=== PATIENT | male | born 2005 | race Caucasian/White ===

== ENCOUNTER 2023-02-18 19:58 | Emergency (ER) | payer OTHER, MEDICAID, SELFPAY ==
--- NOTE | ~2023-02-18 | XR_ITS ---
EXAMINATION: XR HAND, LEFT CLINICAL INFORMATION: Injury fifth finger COMPARISON: None available. TECHNIQUE: PA, lateral, and oblique views of the left hand. FINDINGS: There is a comminuted minimally displaced fracture of the distal tuft of the fifth finger. Question small avulsion fracture of the ulnar or medial more proximal fifth distal phalanx. No other fracture. Joint spaces are Normal. There is overlying soft tissue swelling. XR/XR hand LT 2V IMPRESSION: Comminuted fracture of the distal tuft of the fifth finger
[2023-02-18 20:03] VITALS: BP 116/77; PULSE 90; O2SAT 98
--- NOTE | 2023-02-18 20:03 | ED_ITS ---
HPI - Extremity Injury (Upper) General Chief Complaint: Extremity Problem Stated Complaint: FALL Time Seen by Provider: 02/18/23 20:18 Source: patient Mode of arrival: ambulatory Limitations: no limitations History of Present Illness HPI narrative: Patient is a 17 year male who presents emergency department for evaluation of a crush injury to the left 5th digit. He is in training for the [employer], was pulling on a hose that was stuck and ultimately it crushed the tip of his finger and caused laceration to the lateral nail bed. He has full AROM to the digit but does have pain. There is no subungual hematoma. Reports last tetanus vaccination was in 2014. Related Data Previous Rx's Medication Instructions Recorded amoxicillin 875 mg-potassium 1 tab PO BID #13 tabs 02/18/23 clavulanate 125 mg tablet Allergies Allergy/AdvReac Type Severity Reaction Status Date / Time No Known Allergies Allergy Verified 02/18/23 20:04 Review of Systems Review of Systems: Yes all other systems are reviewed and are negative PMFSH Past Medical History Attestation statement: The following information was validated with the patient. Source: old records reviewed Social History Social History Advance Directives: No Advance Directives Information Provided: No Physical Exam Vital Signs: Vital Signs: Last Vital Signs Temp 98.3 F 02/18/23 20:05 Pulse 92 02/18/23 20:05 Resp 20 02/18/23 20:05 BP 122/72 02/18/23 20:05 Pulse Ox 99 02/18/23 20:05 O2 Del Method Room Air 02/18/23 20:05 BMI result Body Mass Index 21.3 Appearance: Alert.?Oriented to person, place and time. No acute distress.?Normal affect.? Neck: Normal inspection.? Neck supple.?? CVS: Heart sounds normal. Normal heart rate and rhythm.? Pulses normal.?? Respiratory: No respiratory distress.? Lung sounds clear to auscultation bilaterally?? Skin: Skin warm and dry.? Normal skin color.? Extremities: Localized swelling to the distal tip of the left 5th digit with laceration to the lateral nail bed without subungual hematoma, bleeding controlled, full AROM to the digit is intact Neuro: Moves all extremities spontaneously. Sensation intact bilaterally. Ambulates with normal steady gait. Course Course Course Narrative: This is a rapid medical exam. Deferred additional HPI, ROS, PE to primary provider. 17 yo male right hand dominant here with crush injury to left 5th digit. WIll obtain x-ray VSS Medical Decision Making Medical Decision Making MDM Narrative: Patient is a 17-year-old male presents emergency department for evaluation of a crushing injury to the distal left 5th digit as per HPI. Upon examination has Localized swelling to the distal tip of the left 5th digit with laceration to the lateral nail bed without subungual hematoma, bleeding controlled, full AROM to the digit is intact. Clinically have low concern for tendon/ligamentous injury based on examination. XR imaging revealing a comminuted fracture to the distal tuft of the 5th digit Tetanus vaccination was updated, discussed with patient plan of care for prophylactic treatment with antibiotics, was placed in a splint, and provided with outpatient follow-up with orthopedics; Dr. Rojo. Reviewed worrisome signs and symptoms that would warrant re-evaluation emergency department. All questions were answered. Stable for discharge. Differential Diagnosis Differential Diagnoses: The differential diagnosis associated with the presentation includes (As noted above) Independent Interpretation I performed an independent interpretation of an: Plain X-Ray (I personally interpreted XR imaging of the left hand and agree with radiologist impression, distal 5th phalanx fracture.) Radiology Impression Discussion of test interpretation with radiology: I have reviewed the radiologist's reading. Radiologist Impression: XR/XR hand LT 2V IMPRESSION: Comminuted fracture of the distal tuft of the fifth finger Prescription Management I considered prescription management with: Antibiotic Discharge Plan Discharge Clinical Impression: Fracture of distal phalanx of finger of left hand Patient Disposition: Home, Self-Care Instructions: Finger Fracture (ED) Additional Instructions: As discussed, please complete the entire course of antibiotics as prescribed. Leave the splint in place. You have been provided with contact information for the explosive specialist, Dr. Rojo, please contact the office tomorrow morning to arrange for a follow-up visit. Your tetanus vaccine was updated today. You can take ibuprofen 200 mg, 3 tablets (600mg) every 6-8 hours as needed for pain, in addition to Tylenol 500 mg, 2 tablets (1,000mg) every 4-6 h ours as needed for pain, but not to exceed 3 doses daily (3,000mg).? May return back to emergency department any new or worsening symptoms or concerns. Prescriptions: New amoxicillin-pot clavulanate 875-125 mg tablet 1 tab PO BID Qty: 13 0RF Referrals: Melva Rojo MD [Physician] -
[2023-02-18 20:05] VITALS: BP 122/72; PULSE 92; RESP 20; TEMP 36.8; O2SAT 99; BMI 21.3
[2023-02-18] MEDS: Amoxicillin/Potassium Clav 875 MG TABLET PO (22:37)
[2023-02-18] MEDS: Diphth,Pertus(ACell),Tet Adult 0.5 ML SYRINGE IM (22:38)
== END 2023-02-18 22:42 | disposition home or self-care (01) ==
PROVIDERS: Emergency Provider Internal Medicine
DX: S62.637A Displaced fracture of distal phalanx of left little finger, initial encounter for closed fracture (principal); S61.317A Laceration without foreign body of left little finger with damage to nail, initial encounter; W23.0XXA Caught, crushed, jammed, or pinched between moving objects, initial encounter; Y93.89 Activity, other specified; Y92.9 Unspecified place or not applicable; Y99.0 Civilian activity done for income or pay
CPT/HCPCS: 29130; 73120; 90471; 90715; 99282; 99284

== ENCOUNTER 2023-02-21 10:57 | Outpatient (AMB) | payer OTHER, MEDICAID, SELFPAY ==
[2023-02-21 11:05] VITALS: BMI 21.3
--- NOTE | 2023-02-21 11:05 | A.OFFVIS_ITS ---
Intake Vital Signs 02/21/23 11:05 Height 5 ft 7 in Weight 136 lb BMI 21.3 Intake Visit Reasons: Fc - FX distal phalanx of finger of lt hand Intake Note: Earl 17 yr old male who is right hand dominant presents today for his ED follow up visit for his left pinky fracture DOI 02/18/23. States he is in training for the [employer], was pulling on a hose that was stuck and ultimately it crushed the tip of his finger and caused laceration to the lateral nail bed. Xrays were taken and finger was splinted. Currently states his finger feels better while wearing his splint. He has bruising and swelling. Denies numbness or tingling. Allergies No Known Allergies Allergy (Verified 02/21/23 11:06) HPI Fc - FX distal phalanx of finger of lt hand HPI Details 17-year-old right hand dominant male who presents to the office today for an ED follow-up of left small finger injury s/p training for the [employer] when he was pulling on a hose that was stuck which crushed the tip of his finger and caused laceration at the lateral nailbed, 02/18/23. He was seen at ED where x-rays were performed and he was placed in a splint which provided him relief. He currently states he has bruising and swelling in his finger which is improved since his DOI. He denies any numbness or tingling. 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 He does have an abrasion along the base of his nail. No drainage, no erythema. He is able to fully extend the digit. He can flex 90 at MCP, 90 at PIP and 90 at DIP. NVI. Office Procedures Fracture Care Fracture Billing Code: Fracture Billing Code Results Reviewed Results Reviewed: X-rays of the left hand obtained on the ED on 02/18 show a comminuted stress fracture of the left small finger. Assessment & Plan Assessment & Plan (1) Fracture of distal phalanx of finger of left hand: Code(s): S62.639A - Displaced fracture of distal phalanx of unspecified finger, initial encounter for closed fracture Plan He will continue his antibiotics until fully completed. He can wash the area with warm soapy water 1-2 times a day and pat it dry and put it covered as needed. He does have small finger splint that he will use with activities and for protection. He will increase activity as tolerated and see me back as needed. Patient Instructions: Scribed for Manju House PA-C, by Brad Avila medical office receptionist assistant, on 02/21/2023 at 11:00 AM EDMAR. Manju Miranda PA-C, have personally reviewed and agree with the information entered by the scribe. Coding Level of Care Code New Pt Level 3 (66719) Diagnoses Fracture of distal phalanx of finger of left hand S62.639A CPT Codes Fracture Care - Fracture Billing Code: Fracture Billing Code ([id number])
== END 2023-02-21 11:38 | disposition home or self-care (01) ==
PROVIDERS: Visit Provider Physician Assistant
DX: S62.637A Displaced fracture of distal phalanx of left little finger, initial encounter for closed fracture (principal)
CPT/HCPCS: 99203

== ENCOUNTER → 2023-02-21 10:57 | Outpatient (BNVA) | payer OTHER, MEDICAID, SELFPAY | PROVIDERS: Visit Provider Physician Assistant | DX: S62.637A Displaced fracture of distal phalanx of left little finger, initial encounter for closed fracture (principal) | CPT/HCPCS: 99202 ==

== ENCOUNTER 2024-09-06 07:04 | Emergency (ER) | payer OTHER, MEDICAID, SELFPAY ==
--- NOTE | ~2024-09-06 | XR_ITS ---
CLINICAL HISTORY: lt ankle pain 3 view left ankle Comparison: None Findings: There is a distal fibular fracture with overlying soft tissue swelling No significant loss of joint space, osteophytes, or erosions. No ankle effusion. No radiopaque foreign body. IMPRESSION: 1. Distal fibular fracture. This document has been electronically signed by: Abdirahman Nguyen MD on 09/06/2024 08:06:46
[2024-09-06 07:13] VITALS: BP 114/74; BP 130/80; PULSE 110; PULSE 85; RESP 16; TEMP 36.3; O2SAT 100; O2SAT 98; BMI 21.1
[2024-09-06] MEDS: Acetaminophen 325 MG TABLET 975 MG PO (07:25)
--- OUTSIDE RECORDS SUMMARY | 2024-09-06 07:49 | XMS_ITS ---
[facility] Organization [facility] Address [address] [place] [address] Care Team Providers Care Emblem Drawer In Name Role Phone Leon Goldman MD Primary Care Provider Unava ilable Lupis Gaytan Unavailable [phone] Vidal Syed Unavailable [phone] Allergies No Known Allergies REASON FOR VISIT Possible Infection Medications Medication SIG (Take, Route, Frequency, Duration) Notes Start Date End Date Status Pulmicort PRN Not-Taking Sulfamethoxazole-Trimeth oprim Not-Taking Keflex 500 MG 1 capsule Orally carolyn ry 12 hrs for 7 days 02/10/2024 Active Cephalexin 500 MG 1 capsule Orally Carolyn ry 12 hrs for 5 days Active Bactrim DS 800-160 MG 1 tablet Orally ev roseann 12 hrs for 7 days 03/09/2018 Not-Taking Gym Note . . . Medical from gym for 2 weeks 06/15/2019 Active albuterol PRN Active Social History Tobacco Use: Social History Observation Description Date Details (start date - stop date) Never Smoker NA - NA Tobacco Use/Smoking Question Answer Notes Are you a: nonsmoker Tobacco use other than smoking: Question Answer Notes Are you an other tobacco user? No Vital Signs Height 5ft6in in 04/26/2024 Weight 136 lbs 04/26/2024 BMI 21.95 kg/m2 04/26/2024 Blood pressure systolic 121 mm Hg 04/26/20 24 Blood pressure diastolic 79 mm Hg 024 Procedures Procedure Date Ordered Date Performed Result Body Sit e 16128 I&D ABSCESS- SIMPLE,SINGLE 04/26/2024 N/A Encounters Encounter Location Date Provider Diagnosis [facility] [address] [place] [address] 04/26/2024 Vidal Syed Abscess of toe, right L02.611 Assessments Encounter Date Diagnosis (ICD Code) Assessment Notes Treatment Notes Treatment Clinical Notes Section Notes 04/26/2024 Abscess of toe, right (ICD-10 - L02.611) Patient Educated with: WOUND CARE INSTRUCTIONS.p df (WOUND CARE INSTRUCTIONS.p df) Plan Of Treatment Treatment Notes Assessment Notes Abscess of toe, right Patient Educated w ith: WOUND CARE INSTRUCTIONS.pdf (WOUND CARE INSTRUCTIONS.pdf) Pending Test Test Name Order Date 46645 I&D ABSCESS- SIMPLE,SINGLE 024 Next Appt Details Follow Up: prn, Reason: Procedure Notes * Category Sub-Category Detail Notes I&D nail abscess Location Lateral nail ruthy rder, T5 Procedure Performed incision a nd drainage of Single Nail Abscess with use of sterile nail nipper/316 blade. Approximately ( 0.1 ) cc purulent fluid material was drained. The infected devitalized soft tissue was curettaged to healthy bleeding bed. Any affected nail portion was removed to the eponychium . Any evidence of granuloma was also removed at this time. No underlying bone was visualized. There was minimal bleeding as hemostasis was achieved through the temporary use of either a digital tournaquet or the aforementioned local with epinephrine. An application of sterile Bacitracin dressing was performed. Local wound care instructions were discussed and dispensed. Recommended Tylenol or Motrin for pain/discomfort (20938-$200) Type Single, Abscess Anesthesia 3cc of 1 percent Lid ocaine Plain local anesthesic utilizing aseptic technique Progress Notes * ERIK, Earl RDOB:[birth year] (18 yo M)Acc No.[id number]:04/26/2024 Progress Note Patient:?Earl VALENCIA Provider:?Vidal Syed DPM :2005???Age:18 Y???Sex:Male Keenan e:04/26/2024 Address:[address] [place] [address], [id number] Pcp:Leon Goldman MD Subjective: * Chief Complaints: * ???Possible Infection * ROS:?General/Constitutional:?Nausea?denies.?Vomiting?denies.?Hunger Thirst?denies.?Loss appetite?denies.?Chills?denies.?Fatigue?denies.?Fever?denies.?Night Sweats?denies.?Unexplained weight loss?denies.?Unexplained weight gain?denies.?HEENTM:?Dentures?denies.?Dizziness?denies.?Glasses/contacts?admits.?Retinopathy?de nies.?Blurred/double vision?denies.?TMJ?denies.?Discharge/drainage?denies.?Implants?denies.?Sore throat?denies.?Dental implants?denies.?Hard of hearing ?denies.?Difficulty chewing/swallowing/speaking?denies.?Nose bleeds?denies.?Sore mouth?denies.?Respiratory:?On Oxygen?denies.?Pneumonia/pleurisy?denies.?Bronchitis?denies.?Emphysema?denies.?C oughing?denies.?Cough blood?denies.?Shortness of breath?denies.?Wheezing?admits.?Cardiovascular:?Pacemaker?denies.?MVP?denies.?WPW?denies.?CHF?denies.?Heart attack?denies.?Septal defect?denies.?Rapid beat?denies.?Chest pain ?denies.?Atrial Fib.?denies.?Murmur/Palpitations?denies.?Gastrointestinal:?Hemorrhoids?denies.?Stomach/Abdominal pain?denies.?Dark blood stool?denies.?Irritable bowel ?denies.?Constipation?denies.?Diarrhea?denies.?Hematology:?Swelling?denies.?Clots?denies.?Varicose Veins?denies.?Bruising?denies.?Bleeding problem?denies.?Genitourinary:?Blood urine?denies.?Frequent/Painfu/urination/bladder control?denies.?Kidney stones?denies.?Infection (UTI)?denies.?Nephropathy?denies.?sex trans dis (STD)?denies.?Prostate?denies.?Musculoskeletal:?Hammertoes?denies.?Bunions?denies.?Back Pain?denies.?Muscle Cramps/ Resting?denies.?Muscle cramps / walking?denies.?Generalized aches and pains?denies.?Weakness?denies.?Integ.:?Roth?denies.?Scars?denies.?Corns/calluses?denies.?Ingrown nails?admits.?Painful nails?denies.?Open Sores?denies.?Rashes?denies.?Neurologic:?Difficulty sleeping?denies.?Brain disorder?denies.?Numbness?denies.?Balance trouble?denies.?Confusion?denies.?Fainting/blackouts?denies.?Tingling?denies.?Tr emors?denies.? * Medical History:? * Surgical History:?Eye surger y 12/12Eye surgery 07/15/17 * Hospitalization/Major Diagno stic Procedure:?Denies Past Hospitalization * Family History:?Mother: katja coleman?Father: alive.?Paternal Grand Mother: unknown, type II diabetes.?Paternal Grand Father: unknown, type II diabetes.?Maternal Grand Mother: unknown, type I diabetes.?Maternal Grand Father: unknown, type I diabetes.? * Social History:?Tobacco Use:?Tobacco Use/Smoking?Are you a:?nonsmoker ?Tobacco use other than smoking?Are you an other tobacco user??No * Medications:?Takingalbuterol , Notes to Pharmacist: PRNGym Note . . . . Medical from gym for 2 weeks Keflex 500 MG Capsule 1 capsule Orally every 12 hrs Cephalexin 500 MG Capsule 1 capsule Orally Every 12 hrs Taking albuterol , Notes to Pharmacist: PRNTaking Gym Note . . . . Medical from gym for 2 weeks Taking Keflex 500 MG Capsule 1 capsule Orally every 12 hrs Taking Cephalexin 500 MG Capsule 1 capsule Orally Every 12 hrs Not-Taking/PRNPulmicort , Notes to Pharmacist: PRNSulfamethoxazole-Trimethoprim Bactrim DS 800-160 MG Tablet 1 tablet Orally every 12 hrs Medication List reviewed and reconciled with the patientNot-Taking/PRN Pulmicort , Notes to Pharmacist: PRNNot-Taking/PRN Sulfamethoxazole-Trimethoprim Not-Taking/PRN Bactrim DS 800-160 MG Tablet 1 tablet Orally every 12 hrs Medication List reviewed and reconciled with the patient * Allergies:?N.K.D.A.yes[Aller gies Verified] Objective: * Vitals:?Ht: 5ft6in, Wt:136, BMI:21.95, Shoe size: 10-11, BP:121/79mm Hg, Ht-cm: 167.64 cm, Wt-k.69 kg. * Examination: ???Abscess/infected nail: ?INSPECTION?Reveals nail incurvation, pain on palpation, groove laceration, inflammation, malodor, localized cellulitis, and purulent abscess with pre- operative size of approximately ( 3-4 ) mm square without exposed bone, Lateral nail border, T5, extensive granuloma present.?General Examination: ?GENERAL APPEARANCE:? Denies fever, chills, malaise, lymphadenopathy.? Assessment: * Assessment: 1.?Abscess of toe, right - L 61 (Primary)??? Plan: * Treatment: * Procedures:?I&D nail abscess:?Type?Single, Abscess.?Anesthesia?3cc of 1 percent Lidocaine Plain local anesthesic utilizing aseptic technique.?Location?Lateral nail border,?T5.?Procedure?Performed incision and drainage of Single Nail Abscess with use of sterile nail nipper/316 blade. Approximately ( 0.1 ) cc purulent fluid material was drained. The infected devitalized soft tissue was curettaged to healthy bleeding bed. Any affected nail portion was removed to the eponychium . Any evidence of granuloma was also removed at this time. No underlying bone was visualized. There was minimal bleeding as hemostasis was achieved through the temporary use of either a digital tournaquet or the aforementioned local with epinephrine. An application of sterile Bacitracin dressing was performed. Local wound care instructions were discussed and dispensed. Recommended Tylenol or Motrin for pain/discomfort (55588-$200).? * Procedure Codes:?37237 DRAIN AGE OF SKIN ABSCESS $200, Modifiers: T5 * Follow Up:?prn * Images: * Sign off status: Completed true * Provider:?Vidal Syed DPM Date:?2023 Generated for Edouard carmen/Michele/Peteitting on:?09/06/2024 07:05 AM EDT History and Physical Notes * Examination Category Sub-Category Detail Notes Category Not es General Examination GENERAL APPEARANCE: Denies f ever, chills, malaise, lymphadenopathy Abscess/infected nail INSPECTION Reveals nail incurvation, pa in on palpation, groove laceration, inflammation, malodor, localized cellulitis, and purulent abscess with pre-operative size of approximately ( 3-4 ) mm square without exposed bone, Lateral nail border, T5, extensive granuloma present
--- OUTSIDE RECORDS SUMMARY | 2024-09-06 07:49 | XMS_ITS ---
Author Organization [facility] Address [address] [place] [address] Care Team Providers Care Maintenance Groundman Name Role Phone Leon Goldman MD Primary Care Provider Unava ilLupis Caicedo Unavailable [phone] Allergies No Known Allergies REASON FOR VISIT Pcp-12/19, Skin problem(s) Medications Medication SIG (Take, Route, Frequency, Duration) Notes Start Date End Date Status Bactrim DS 800-160 MG 1 tablet Orally ev roseann 12 hrs for 7 days 03/09/2018 Not-Taking Sulfamethoxazole-Trimeth oprim Not-Taking Pulmicort PRN Not-Taking Keflex 500 MG 1 capsule Orally carolyn ry 12 hrs for 7 days 02/10/2024 Active Gym Note . . . Medical from gym for 2 weeks 06/15/2019 Active albuterol PRN Active Cephalexin 500 MG 1 capsule Orally Carolyn ry 12 hrs for 5 days Active Social History Tobacco Use: Social History Observation Description Date Details (start date - stop date) Never Smoker NA - NA Tobacco Use/Smoking Question Answer Notes Are you a: nonsmoker Tobacco use other than smoking: Question Answer Notes Are you an other tobacco user? No Vital Signs Height 5ft6in in 03/09/2024 Weight 136 lbs 03/09/2024 BMI 21.95 kg/m2 03/09/2024 Encounters Encounter Location Date Provider Diagnosis [facility] [address] [place] [address] 03/09/2024 Lupis Perica Cellulitis of toe of right foot L03.031 and Granuloma of great toe L92.9 Assessments Encounter Date Diagnosis (ICD Code) Assessment Notes Treatment Notes Treatment Clinical Notes Section Notes 03/09/2024 Cellulitis of toe of right foot (ICD-10 - L03.031) 03/09/2024 Granuloma of great toe (ICD-10 - L92.9) Plan Of Treatment Medication Medication Name Sig Start Date Stop Date Notes Cephalexin 500 MG 1 capsule Orally Every 12 hrs for 5 days Next Appt Details Follow Up: prn, Reason: Procedure Notes * Category Sub-Category Detail Notes Debride skin and subQ Open wound Physician of record performed open wound selective debridement of devitalized necrotic/nonviable soft tissue, fibrin, exudate, epidermis, dermis, thru skin and subcutaneous fat tissue, first 20 sq cm or less, using sharp dissection with sterile 15 blade, and/or tissue nippers. ANESTHESIA was DEFERRED, Pt tolerate to pain, , Sterile antibiotic dressing applied. Hemostasis was controlled through silver nitrate, The patient is to apply Antibiotic Oint. to the wound and cover with a DSD, The patient is to cont the local wound care as directed Progress Notes * Earl VALENCIA RDOB:[birth year] (18 yo M)Acc No.[id number]:03/09/2024 Progress Notes Patient:?ERIKEarl SINHA R Provider:?Lupis Gaytan DPM :2005???Age:18 Y???Sex:Male Keenan e:03/09/2024 Address:[address] [place], [place] [id number] Pcp:Leon Goldman MD Subjective: * Chief Complaints: * ???Pcp-12/19Skin problem(s) * HPI: ???Skin problems:?Nature:?redness, swelling , tender.?Location:?Right, 1st, Toe(s).?Duration:?a few days.?Course:?worse.?Treatments:?Topical abx.? * ROS:?General/Constitutional:?Nausea?denies.?Vomiting?denies.?Hunger Thirst?denies.?Loss appetite?denies.?Chills?denies.?Fatigue?denies.?Fever?denies.?Night Sweats?denies.?Unexplained weight loss?denies.?Unexplained [...] 1 capsule Orally every 12 hrs Taking albuterol , Notes to Pharmacist: PRNTaking Gym Note . . . . Medical from gym for 2 weeks Taking Keflex 500 MG Capsule 1 capsule Orally every 12 hrs Not-Taking/PRNPulmicort , Notes to Pharmacist: [...] Vitals:?Ht: 5ft6in, Wt:136, BMI:21.95, Shoe size: 10-11, Ht-cm: 167.64 cm, Wt- k.69 kg. * Examination: ???Dermatologic: ?SKIN FINDINGS:? Skin shows sign(s) of, localized cellulitis without lymphangitis extending proximally to the level of the MPJ,T5 lateral nail border, granuloma present proximal lateral nail border T5.? Assessment: * Assessment: 1.?Cellulitis of toe of righ t foot - L03.031 (Primary)???Specify :Acute problem, Complicated w/ Multiple Tx Options(4),Dx New problem, Prognosis Uncertain (4),Rx Management (4)???2.?Granuloma of great toe - L92.9??? Plan: * Treatment: * Procedures:?Debride skin and subQ:?Open wound?Physician of record performed open wound selective debridement of devitalized necrotic/nonviable soft tissue, fibrin, exudate, epidermis, dermis, thru skin and subcutaneous fat tissue, first 20 sq cm or less, using sharp dissection with sterile 15 blade, and/or tissue nippers. ANESTHESIA was DEFERRED, Pt tolerate to pain, , Sterile antibiotic dressing applied. Hemostasis was controlled through silver nitrate, The patient is to apply Antibiotic Oint. to the wound and cover with a DSD, The patient is to cont the local wound care as directed.? * Procedure Codes:? * Preventive Medicine:? ??Counseling:?Cellulitis/Lymphangitis?The patient was counseled on the diagnosis, etiology, treatment options, and importance for adherence to recommendations regarding the treatment for Cellulitis. Abx were Rxed to address the cellulitis. The advantages and disadvantages of an antibiotic medication, along with its side effects, were discussed with the patient to their comprehended satisfaction. Patient questions re: use, dosage, and possible pharmacutical interactions were reviewed and the answers clearly understood. If the condition should worsen while taking the antibiotics as directed, it was recommeded that the patient call the office immediately or seek emergency medical care. The patient verbally confirmed a full understanding of the above information, Rxed Abx.?Ulcer:?A detailed plan of care was reviewed with the patient. We emphasized the fact that the patient takes on an active participating role in the treatment process and emphasized to them that they are an included, valued, and important member of the wound healing team in order to reach an expedient successful outcome. The patient agreed to follow their medically recommended diet while increasing their protein intake if safely able to do so, maintain proper bodily hydaration, abide by weight-bearing restrictions at all times, quit all current smoking habits if any, and diligently follow any/all dressing change instructions. It was clearly made known to the patient that if they fail to do their part, they will likely extend their course of treatment as well as possibly increase their risk of adverse events including amputation. The patient was instructed on importance of proper wound care consisting of pressure reduction, and proper maintainance of a moist wound environment. The patient is to cleanse the wound with warm soapy water/peroxide/saline, or betadine BID based on product availability. The patient is to apply Antibiotic to the wound and cover with a DSD as directed. The patient was instructed to change dressings according to orders, or PRN saturation, leaks. The patient was instructed to monitor and report any signs or symptoms of infection or any untoward reactions. Precautions Taken: Offloading/Pressure reduction via rest/ limited activity to essential to daily life only, cane/ crutches/ walker/ knee scooter/ wheel chair, shoe modification, accommodative padding, sharp debridement, and take/apply medication as directed. THE GOALS of wound debridement to remove devitilized tissue, decrease risk for infection, promote wound healing and prevent further complication were discussed/reviewed. Debridement frequency as indicated.? * Follow Up:?prn * * Sign off status: Completed true * Provider:?Lupis Gaytan, VIKRAM Date:?03/2024 Generated for Edouard carmen/Michele/Enrique on:?09/06/2024 07:05 AM EDT History and Physical Notes * HPI (History of Present Illness) Category Sub-Category Detail Notes Category Not es Skin problems Nature: redness , swelling , tender Location: Right, 1st, Toe(s) Duration: a few days Course: worse Treatments: Topical abx Examination Category Sub-Category Detail Notes Category Not es Dermatologic SKIN FINDINGS: Skin shows sign( s) of, localized cellulitis without lymphangitis extending proximally to the level of the MPJ,T5 lateral nail border, granuloma present proximal lateral nail border T5
--- OUTSIDE RECORDS SUMMARY | 2024-09-06 07:49 | XMS_ITS | Patient Health Record ---
Author Organization [facility] Address [address] [place] [address] Care Team Providers Care Log Stacker Operator Name Role Phone Susi MILLER, Leon Primary Care Provider Unava ilable Lupis Gaytan Unavailable [phone] Vidal Syed Unavailable [phone] Allergies No Known Allergies Reason For Referral Diagnosis 1 Ingrowing nail (L60. 0) Diagnosis 2 Cellulitis of left t oe (L03.032) Diagnosis 3 Abscess of toe, left (L02.612) Diagnosis 4 Cellulitis of right toe (L03.031) Referring Provider First Name Leon Referring Provider Last Name Susi [facility] [place] Referred Provider Lupis Gaytan Referred Address [address] [place], [place],[address], Referred Provider Specialty Podiatry Referral Priority Routine Medications Medication SIG (Take, Route, Frequency, Duration) Notes Start Date End Date Status Gym Note . . . Medical from gym for 2 weeks 06/15/2019 Active Pulmicort PRN Not-Taking Sulfamethoxazole-Trimeth oprim Not-Taking Keflex 500 MG 1 capsule Orally carolyn ry 12 hrs for 7 days 02/10/2024 Active Cephalexin 500 MG 1 capsule Orally Carolyn ry 12 hrs for 5 days Active Bactrim DS 800-160 MG 1 tablet Orally ev roseann 12 hrs for 7 days 03/09/2018 Not-Taking albuterol PRN Active Social History Tobacco Use: Social History Observation Description Date Details (start date - stop date) Never Smoker NA - NA Tobacco Use/Smoking Question Answer Notes Are you a: nonsmoker Tobacco use other than smoking: Question Answer Notes Are you an other tobacco user? No Vital Signs Blood pressure diastolic 79 mm Hg 04/26/2024 Height 5ft6in in 04/26/2024 Blood pressure systolic 121 mm Hg 04/26/2024 Weight 136 lbs 04/26/2024 BMI 21.95 kg/m2 04/26/2024 Procedures Procedure Date Ordered Date Performed Result Body Sit e 21428 I&D ABSCESS- SIMPLE,SINGLE 04/26/2024 N/A Encounters Encounter Location Date Provider Diagnosis [address] [address] 02/11/2024 Lupis Perica Abscess of toe, right L02.611 ; Cellulitis of right toe L03.031 and Ingrown nail L60.[address] [address] 03/09/2024 Lupis Perica Cellulitis of toe of right foot L03.031 and Granuloma of great toe L92.9 [facility] [address] [address] 04/26/2024 Vidal Kunal Abscess of toe, right L02.[address] [address] 01/27/2024 Lupis Perica [address] [address] 02/10/2024 Lupis Perica [address] [address] 04/26/2024 Lupis Perica Assessments Encounter Date Diagnosis (ICD Code) Assessment Notes Treatment Notes Treatment Clinical Notes Section Notes 02/11/2024 Cellulitis of right toe (ICD-10 - L03.031) 02/11/2024 Abscess of toe, right (ICD-10 - L02.611) Patient Educated with: WOUND CARE INSTRUCTIONS.p df (WOUND CARE INSTRUCTIONS.p df) 03/09/2024 Cellulitis of toe of right foot (ICD-10 - L03.031) 03/09/2024 Granuloma of great toe (ICD-10 - L92.9) 04/26/2024 Abscess of toe, right (ICD-10 - L02.611) Patient Educated with: WOUND CARE INSTRUCTIONS.p df (WOUND CARE INSTRUCTIONS.p df) 02/11/2024 Ingrown nail (ICD-10 - L60.0) Plan Of Treatment Pending Test Test Name Order Date 04188 I&D ABSCESS- SIMPLE,SINGLE 018 89733 I&D ABSCESS- SIMPLE,SINGLE 024 Medical (General) History Medical History History ICD Code Anxiety asthma Autism Surgical History Surgery Date(Month/Year) Eye surgery 12/12 Eye surgery 07/15/17
--- OUTSIDE RECORDS SUMMARY | 2024-09-06 07:49 | XMS_ITS ---
Author Organization [facility] Address [address] [place] [address] Care Team Providers Care Switchboard Inspector Name Role Phone Leon Goldman MD Primary Care Provider Unava ilable Lupis Gaytan Unavailable [phone] REASON FOR VISIT antibx Encounters Encounter Location Date Provider Diagnosis [address] [address] 04/26/2024 Lupis Gaytan Plan Of Treatment No Information Progress Notes * Earl VALENCIA RDOB:[birth year] (18 yo M)Acc No.[id number]:04/26/2024 Patient:?ERIK Earl Lundberg :2005???Age:18 Y???Sex:Male Address:[address] [place] [address], [address] * true * Date:? Generated for Printi ng/Faxing/eTransmitting on:?09/06/2024 07:49 AM EDT
[2024-09-06] MEDS: Ibuprofen 600 MG TABLET PO (09:05)
--- NOTE | 2024-09-06 09:10 | ED.LOWEXIN ---
HPI - Extremity Injury (Lower) General Chief Complaint: Extremity Injury, Lower Stated Complaint: TRIP/FALL @WORK,L ANKLE PAIN PER EMS Time Seen by Provider: 09/06/24 08:48 Source: patient Mode of arrival: ambulatory Limitations: no limitations History of Present Illness ED Provider: Jazz Bobby PA-C HPI Narrative: 19 yo male presents to the ER for evaluation of left ankle pain after he twisted his ankle coming out of a fire truck. 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 He heard a pop. He has had left lateral ankle pain and swelling since. He is able to ambulate on the ankle but has sharp pains with certain movements. He denies any numbness or tingling. No other injuries. No calf pain. No foot pain. MD complaint: ankle injury Onset (ago): hour(s) Injury: Left: ankle Type of Injury: inversion Place: work Severity: moderate Severity scale (1-10): 6 Relieving factors: immobilization and rest Exacerbating factors: weight bearing, movement and palpation Context: fall Associated symptoms: snap/pop sensation, swelling and able to partially bear weight Other symptoms: none Related Data Home Medications ?Medication ?Instructions ?Recorded ?Confirmed albuterol sulfate 90 mcg/actuation 2 puff inhalation Q4H PRN wheezing 02/21/23 aerosol inhaler cetirizine 10 mg tablet 10 mg PO allergies 02/21/23 Previous Rx's ?Medication ?Instructions ?Recorded amoxicillin 875 mg-potassium 1 tab PO BID #13 tabs 02/18/23 clavulanate 125 mg tablet ibuprofen 600 mg tablet 600 mg PO Q8H PRN fever or pain 09/06/24 #14 tabs oxycodone 5 mg tablet 5 mg PO Q8H PRN severe pain (scale 09/06/24 score 7-10) #6 tabs Allergies Allergy/AdvReac Type Severity Reaction Status Date / Time No Known Allergies Allergy Verified 09/06/24 07:19 Review of Systems Review of Systems: Yes all other systems are reviewed and are negative PMFSH Social History Social History (Updated 02/21/23 @ 11:07 by LEONARDO Blackwood) Smoked in Last 30 Days: No Use of substances other than those prescribed or required for medical reasons: No Advance Directives: No Advance Directives Information Provided: Yes Do you have a plan to hurt others: No Plan Current occupational status: employed 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 Oriented X3. No acute distress. HEENT: normal inspection CVS: Normal heart rate and rhythm. Pulses normal. Respiratory: No respiratory distress. Skin: Skin warm and dry. Normal skin color. Normal skin turgor. No rashes. Extremities: moderate swelling of the left lateral ankle with associated tenderness, pain with plantarflexion. no swelling of the medial ankle. foot is warm with 2+ DP/PT pulses Neuro: Oriented X 3. No motor deficit. No sensory deficit. 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 CMS intact. exam w/ moderate swelling of the lateral malleolus. XR with distal fibular fracture c/w ortho - okay for walking boot informed patient to f/u with ortho and work connection stable for d/c home with outpatient follow up Differential Diagnosis Differential Diagnoses: The differential diagnosis associated with the presentation includes Ankle sprain, ankle fracture, ligamentous injury, contusion Consult Healthcare Provider Management of the patient was discussed with: Communications Professor duyen BAIG Independent Interpretation I performed an independent interpretation of an: Plain X-Ray Interpretation: distal fib fx present Radiology Impression Discussion of test interpretation with radiology: I have reviewed the radiologist's reading. Radiologist Impression: CLINICAL HISTORY: lt ankle pain 3 view left ankle Comparison: None Findings: There is a distal fibular fracture with overlying soft tissue swelling No significant loss of joint space, osteophytes, or erosions. No ankle effusion. No radiopaque foreign body. IMPRESSION: 1. Distal fibular fracture. Prescription Management I considered prescription management with: Pain Medication Critical Care Time Critical Care Time Critical Care Time: No Discharge Plan Discharge Clinical Impression: Fracture of distal end of fibula Qualifiers: Encounter type: initial encounter Fracture type: closed Fracture morphology: unspecified fracture morphology Laterality: left Qualified Code(s): S82.832A - Other fracture of upper and lower end of left fibula, initial encounter for closed fracture Patient Disposition: Home, Self-Care Instructions: Ankle Fracture (DC) Additional Instructions: wear the walking boot at all times, except when bathing or sleeping elevate and ice when able to help decrease the swelling follow up with Orthopedics - call for an appointment, name and number below take motrin and tylenol around the clock for pain take the prescribed oxycodone as needed for severe pain only, do not drive after taking this CLINICAL HISTORY: lt ankle pain 3 view left ankle Comparison: None Findings: There is a distal fibular fracture with overlying soft tissue swelling No significant loss of joint space, osteophytes, or erosions. No ankle effusion. No radiopaque foreign body. IMPRESSION: 1. Distal fibular fracture. Prescriptions: New oxycodone 5 mg tablet 5 mg PO Q8H PRN (Reason: severe pain (scale score 7-10)) Qty: 6 0RF Rx Instructions: Partial Fill upon patient request. ibuprofen 600 mg tablet 600 mg PO Q8H PRN (Reason: fever or pain) Qty: 14 0RF No Action amoxicillin-pot clavulanate 875-125 mg tablet 1 tab PO BID Qty: 13 0RF albuterol sulfate 90 mcg/actuation HFA aerosol inhaler 2 puff inhalation Q4H PRN (Reason: wheezing) cetirizine 10 mg tablet 10 mg PO Referrals: [facility] [Provider Group] (CLINICAL HISTORY: lt ankle pain 3 view left ankle Comparison: None Findings: There is a distal fibular fracture with overlying soft tissue swelling No significant loss of joint space, osteophytes, or erosions. No ankle effusion. No radiopaque foreign body. IMPRESSION: 1. Distal fibular fracture.) Work Connection [Provider Group] Stand Alone Forms: Work/School Release Interventions: ED Discharge Assessment Last Done: 09/06/24 09:41 Print Language: Japanese
[2024-09-06 09:32] VITALS: BP 114/80; PULSE 86; RESP 14; TEMP 36.8; O2SAT 98
[2024-09-06 09:41] VITALS: BP 114/80; PULSE 86; RESP 14; TEMP 36.8; O2SAT 98
== END 2024-09-06 09:41 | disposition home or self-care (01) ==
PROVIDERS: Emergency Provider Emergency Medicine Emergency Medical Services; PCP Student in an Organized Health Care Education/Training Program
DX: S82.832A Other fracture of upper and lower end of left fibula, initial encounter for closed fracture (principal); X50.1XXA Overexertion from prolonged static or awkward postures, initial encounter; M25.572 Pain in left ankle and joints of left foot; Y93.89 Activity, other specified; Y92.812 Truck as the place of occurrence of the external cause; Y99.0 Civilian activity done for income or pay
CPT/HCPCS: 73600; 99284

== ENCOUNTER → 2024-09-06 07:28 | Outpatient (BNV) | payer OTHER, SELFPAY | PROVIDERS: Emergency Provider Emergency Medicine Emergency Medical Services; PCP Student in an Organized Health Care Education/Training Program; Visit Provider Specialist | DX: S82.832A Other fracture of upper and lower end of left fibula, initial encounter for closed fracture (principal) | CPT/HCPCS: 73600 ==

== ENCOUNTER → 2024-09-08 08:01 | Outpatient (BNVA) | payer OTHER, SELFPAY | PROVIDERS: PCP Student in an Organized Health Care Education/Training Program; Visit Provider Internal Medicine | DX: Z09 Encounter for follow-up examination after completed treatment for conditions other than malignant neoplasm (principal); S82.402A Unspecified fracture of shaft of left fibula, initial encounter for closed fracture; V86.41XA Person injured while boarding or alighting from ambulance or fire engine, initial encounter | CPT/HCPCS: 99202 ==

== ENCOUNTER 2024-09-15 08:46 | Outpatient (AMB) | payer OTHER, MEDICAID, SELFPAY ==
--- NOTE | 2024-09-15 08:50 | MHC.OFFVIS ---
Vital Signs 09/15/24 08:52 Height 5 ft 7 in Weight 135 lb BMI 21.1 Intake Visit Reasons: E/D-FC left lateral ankle injury-DOI 09/06/24 Intake Note: Earl is a 19 year old male who presents today for an ER follow up of left lateral ankle injury, DOI 09/06/24. Patient presented to [facility] ER status post work injury to his left ankle. 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 He was placed in a walking boot and referred to orthopedics. Today patient reports discomfort located at top of foot, describes a pressure like sensation. His pain is located at the lateral aspect of ankle. No numbness or tingling. He has been out of work since his injury. Allergies No Known Allergies Allergy (Verified 09/15/24 08:51) Medication List - Last Reconciled 09/15/24 by Manju House PA-C albuterol sulfate 90 mcg/actuation 2 puffs inhalation Q4H PRN cetirizine 10 mg PO ibuprofen 600 mg PO Q8H PRN oxycodone 5 mg PO Q8H PRN HPI HPI E/D-FC left lateral ankle injury-DOI 09/06/24: Details: 19-year-old gentleman presents to the office today for an injury he sustained to his left ankle on 09/06/2024 while at work. States he was getting out of the truck when he tripped on some equipment and he fell twisting the ankle. He was seen in the emergency department where x-rays were obtained and were significant for a nondisplaced distal fibular fracture. He was placed in a boot and referred to our office for ortho eval. 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 There is some residual swelling with ecchymosis on the dorsum of the foot. Neurovascularly intact. Office Procedures AMB Fracture Care Fracture Billing Code: Fracture Billing Code Assessment & Plan Assessment & Plan (1) Fracture of distal end of fibula: Code(s): S82.839A - Other fracture of upper and lower end of unspecified fibula, initial encounter for closed fracture Category: Medical Qualifiers: Encounter type: initial encounter Fracture morphology: unspecified fracture morphology Fracture type: closed Laterality: left Qualified Code(s): S82.832A - Other fracture of upper and lower end of left fibula, initial encounter for closed fracture Plan: The patient was given a tall walking boot in the office today. The boot from the emergency department was incorrectly sized causing the patient discomfort. The patient can weightbear as tolerated while in the boot. He can remove for hygiene and icing. I did send a prescription for ibuprofen to the pharmacy he will take this 3 times a day for the next 2 weeks to help with inflammation. He can return to work on September 20 sedentary work only and he should elevate throughout the day. I would like to see him back in 4 weeks with x-rays, sooner if needed. Coding Level of Care Code Est Pt Level 3 (39217) Complex EM visit Add On G2211 Diagnoses Fracture of distal end of fibula S82.832A Encounter type: initial encounter Fracture morphology: unspecified fracture morphology Fracture type: closed Laterality: left CPT Codes Fracture Care - Fracture Billing Code: Fracture Billing Code ([id number])
[2024-09-15 08:52] VITALS: BMI 21.1
--- OUTSIDE RECORDS SUMMARY | 2024-09-15 10:03 | XMS_ITS | Patient Health Record ---
Author Organization [facility] Address [address] [place] [address] Care Team Providers Care Electroplater Name Role Phone Susi MILLER, Leon Primary Care Provider Unava ilable Lupis Gaytan Unavailable [phone] Vidal Syed Unavailable [phone] Allergies No Known Allergies Reason For Referral Diagnosis 1 Ingrowing nail (L60. 0) Diagnosis 2 Cellulitis of left t oe (L03.032) Diagnosis 3 Abscess of toe, left (L02.612) Diagnosis 4 Cellulitis of right toe (L03.031) Referring Provider First Name Leon Referring Provider Last Name Susi [facility] Referred Provider Lupis Gaytan Referred Address [address] [place], [place],[address], Referred Provider Specialty Podiatry Referral Priority Routine [...] Ordered Date Performed Result Body Sit e 40272 I&D ABSCESS- SIMPLE,SINGLE 04/26/2024 N/A Encounters Encounter Location Date Provider Diagnosis [address] [address] 02/11/2024 Lupis Perica Abscess of toe, right L02.611 ; Cellulitis of right toe L03.031 and Ingrown nail L60.[address] [address] 03/09/2024 Lupis Perica Cellulitis of toe of right foot L03.031 and Granuloma of great toe L92.9 [facility] [address] [address] 04/26/2024 Vidal Kunal Abscess of toe, right L02.[address] [address] 01/27/2024 Lupis Perica [address] [address] 02/10/2024 Lupis Perica [address] [address] 04/26/2024 Lupis Perica Assessments Encounter Date Diagnosis [...] Treatment Pending Test Test Name Order Date 10151 I&D ABSCESS- SIMPLE,SINGLE 018 93759 I&D ABSCESS- SIMPLE,SINGLE 024 Medical (General) History Medical History History ICD Code Anxiety asthma Autism Surgical History Surgery Date(Month/Year) Eye surgery 12/12 Eye surgery 07/15/17
--- OUTSIDE RECORDS SUMMARY | 2024-09-15 10:03 | XMS_ITS ---
[facility] Address [address] [place] [address] Care Team Providers Care Survey Instrument Operator Name Role Phone Leon Goldman MD Primary Care Provider Unava ilable Lupis Gaytan Unavailable [phone] Vidal Syed Unavailable [phone] Allergies No Known Allergies REASON FOR VISIT [...] Ordered Date Performed Result Body Sit e 18508 I&D ABSCESS- SIMPLE,SINGLE 04/26/2024 N/A Encounters Encounter Location Date Provider Diagnosis [facility] [place] [address] [facility] [address] [place] [address] 04/26/2024 Vidal Syed Abscess of toe, right [...] INSTRUCTIONS.pdf) Pending Test Test Name Order Date 01533 I&D ABSCESS- SIMPLE,SINGLE 024 Next Appt Details [...] dispensed. Recommended Tylenol or Motrin for pain/discomfort (43559-$200) Type Single, Abscess Anesthesia 3cc of 1 percent Lid ocaine Plain local anesthesic utilizing aseptic technique Progress Notes * ERIK, Earl RDOB:[birth year] (18 yo M)Acc No.[id number]:04/26/2024 Progress Note Patient:?Earl VALENCIA Provider:?Vidal Syed DPM :2005???Age:18 Y???Sex:Male Keenan e:04/26/2024 Address:[address] [place] [address], [facility], [place] Pcp:Leon Goldman MD Subjective: * Chief Complaints: [...] dispensed. Recommended Tylenol or Motrin for pain/discomfort (53067-$200).? * Procedure Codes:?81892 DRAIN AGE OF SKIN ABSCESS $200, Modifiers: T5 * Follow Up:?prn * Images: * Sign off status: Completed true * Provider:?Vidal Syed DPM Date:?2023 Generated for Edouard carmen/Michele/Peteitting on:?09/15/2024 10:03 AM EDT History and Physical Notes * [...]
--- OUTSIDE RECORDS SUMMARY | 2024-09-15 10:03 | XMS_ITS ---
Author Organization [facility] Address [address] [place] [address] Care Team Providers Care Materials And Processes Manager Name Role Phone Leon Goldman MD Primary Care Provider Unava ilLupis Caicedo Unavailable [phone] Allergies No Known Allergies REASON FOR VISIT [...] Provider Diagnosis [facility] [address] [place] [address] 03/09/2024 Lupis Perica Cellulitis of toe of [...] * Earl VALENCIA RDOB:[birth year] (18 yo M)Acc No.[id number]:03/09/2024 Progress Notes Patient:?ERIKEarl SINHA R Provider:?Lupis Gaytan DPM :2005???Age:18 Y???Sex:Male Keenan e:03/09/2024 Address:[address] [place], [place] [id number] Pcp:Leon Goldman MD Subjective: * Chief Complaints: [...] Gaytan, VIKRAM Date:?03/2024 Generated for Edouard carmen/Michele/Enrique on:?09/15/2024 10:03 AM EDT History and Physical [...]
--- OUTSIDE RECORDS SUMMARY | 2024-09-15 10:03 | XMS_ITS ---
Author Organization [facility] Address [address] [place] [address] Care Team Providers Care Prosthetic Technician Name Role Phone Leon Goldman MD Primary Care Provider Unava ilable Lupis Gaytan Unavailable [phone] REASON FOR VISIT antibx Encounters Encounter Location Date Provider Diagnosis [address] [address] 04/26/2024 Lupis Gaytan Plan Of Treatment No Information Progress Notes * Earl VALENCIA RDOB:[birth year] (18 yo M)Acc No.[id number]:04/26/2024 Patient:?ERIK Earl Lundberg :2005???Age:18 Y???Sex:Male Address:[address] [place] [address], [address] * true * Date:? Generated for Printi ng/Faxing/eTransmitting on:?09/15/2024 10:03 AM EDT
== END 2024-09-15 09:16 | disposition home or self-care (01) ==
LOC: HO.HOS 08:47
PROVIDERS: PCP Student in an Organized Health Care Education/Training Program; Visit Provider Physician Assistant
DX: S82.832A Other fracture of upper and lower end of left fibula, initial encounter for closed fracture (principal)
CPT/HCPCS: 99213; G2211

== ENCOUNTER → 2024-09-15 08:46 | Outpatient (BNVA) | payer OTHER, MEDICAID, SELFPAY | PROVIDERS: PCP Student in an Organized Health Care Education/Training Program; Visit Provider Physician Assistant | DX: S82.832A Other fracture of upper and lower end of left fibula, initial encounter for closed fracture (principal) | CPT/HCPCS: 99212 ==

== ENCOUNTER 2024-10-13 10:29 | Outpatient (REF) | payer OTHER, MEDICAID, SELFPAY ==
--- NOTE | ~2024-10-13 | XR_ITS ---
EXAMINATION: XR ANKLE, LEFT CLINICAL INFORMATION: M25.572 - Pain in left ankle and joints of left foot COMPARISON: September 06, 2024. TECHNIQUE: AP, lateral, and mortise views of the left ankle. FINDINGS: Mild sclerosis along the transversely oriented fracture distal metaphysis of the left fibula. No acute cortical disruption or malalignment. No lytic or blastic lesions. Mild soft tissue edema pattern, lateral malleolus less pronounced since prior exam. XR/XR ankle LT min 3V IMPRESSION: Healing fracture. Decreased soft tissue contusion/edema, lateral malleolus. Electronically signed by: Unruly Boyd MD 10/13/2024 11:05 AM EDT
--- OUTSIDE RECORDS SUMMARY | 2024-10-13 11:56 | XMS_ITS | Patient Health Record ---
Author Organization [facility] Address [address] [place] [address] Care Team Providers Care Radio Survey Worker Name Role Phone Susi MILLER, Leon Primary Care Provider Unava ilable Lupis Gaytan Unavailable [phone] Vidal ySed Unavailable [phone] Allergies No Known Allergies Reason For Referral Diagnosis 1 Ingrowing nail (L60. 0) Diagnosis 2 Cellulitis of left t oe (L03.032) Diagnosis 3 Abscess of toe, left (L02.612) Diagnosis 4 Cellulitis of right toe (L03.031) Referring Provider First Name Leon Referring Provider Last Name Susi [facility] Referred Provider Lupis Gaytan Referred Address [address] [place], [place],[address], Referred Provider Specialty Podiatry Referral Priority Routine [...] Ordered Date Performed Result Body Sit e 10685 I&D ABSCESS- SIMPLE,SINGLE 04/26/2024 N/A Encounters Encounter Location Date Provider Diagnosis [address] [address] 02/11/2024 Lupis Perica Abscess of toe, right L02.611 ; Cellulitis of right toe L03.031 and Ingrown nail L60.[address] [address] 03/09/2024 Lupis Perica Cellulitis of toe of right foot L03.031 and Granuloma of great toe L92.9 [facility] [address] [address] 04/26/2024 Vidal Kunal Abscess of toe, right L02.[address] [address] 01/27/2024 Lupis Perica [address] [address] 02/10/2024 Lupis Perica [address] [address] 04/26/2024 Lupis Perica Assessments Encounter Date Diagnosis [...] Treatment Pending Test Test Name Order Date 62446 I&D ABSCESS- SIMPLE,SINGLE 018 34100 I&D ABSCESS- SIMPLE,SINGLE 024 Medical (General) History Medical History History ICD Code Anxiety asthma Autism Surgical History Surgery Date(Month/Year) Eye surgery 12/12 Eye surgery 07/15/17
== END 2024-10-13 10:30 | disposition home or self-care (01) ==
LOC: HO.HOSX 10:29
PROVIDERS: PCP Student in an Organized Health Care Education/Training Program; Visit Provider Physician Assistant
DX: M25.572 Pain in left ankle and joints of left foot (principal); S82.832A Other fracture of upper and lower end of left fibula, initial encounter for closed fracture
CPT/HCPCS: 73610; 99212

== ENCOUNTER → 2024-10-13 10:33 | Outpatient (BNV) | payer OTHER, SELFPAY | PROVIDERS: PCP Student in an Organized Health Care Education/Training Program; Visit Provider Radiology Diagnostic Radiology | DX: M25.572 Pain in left ankle and joints of left foot (principal) | CPT/HCPCS: 73610 ==

== ENCOUNTER 2024-10-13 10:59 | Outpatient (AMB) | payer OTHER, SELFPAY ==
--- NOTE | 2024-10-13 11:03 | A.OFFVIS_ITS ---
Vital Signs 10/13/24 11:07 Height 5 ft 7 in Weight 135 lb BMI 21.1 Intake Visit Reasons: OV-4wk f/u left ankle fx w xrays Intake Note: Earl is a 19 year old male who presents for a follow up of left ankle fracture status post a workers comp injury, DOI 09/06/24. At his last visit he was released to return back to work on September 20, sedentary work only and allow to elevate throughout the day. He was instructed to follow up in 4 weeks with repeat x-rays. Today patient reports he is doing well, not too many issues with walking boot wear. He states upon flexing his foot with boot off he has discomfort that is located at the posterior aspect of ankle. Allergies No Known Allergies Allergy (Verified 10/13/24 11:07) HPI HPI OV-4wk f/u left ankle fx w xrays: Details: 19-year-old gentleman returns to the office today for a follow-up left ankle fracture. He has been ambulating weight-bearing as tolerated in a boot. He states he has taken the boot off at times a walker around the house and has not had significant pain but he does mention some discomfort along the peroneal tendon with push-off type activities. He has been working light duty. 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 He has mild tenderness along the distal end of the fibula. Full range of motion with mild weakness when compared to contralateral side. Neurovascularly intact. Results Reviewed Results Reviewed: X-rays of the left ankle obtained today and reviewed by me show healing through the distal fibular fragment with ankle mortise intact. Assessment & Plan Assessment & Plan (1) Fracture of distal end of fibula: Code(s): S82.839A - Other fracture of upper and lower end of unspecified fibula, initial encounter for closed fracture Category: Medical Qualifiers: Encounter type: initial encounter Fracture morphology: unspecified fracture morphology Fracture type: closed Laterality: left Qualified Code(s): S82.832A - Other fracture of upper and lower end of left fibula, initial encounter for closed fracture Plan: Mother is interval healing through the fracture site I explained to the patient there still remains healing to be done as the fracture is not strong. He was transitioned to a lace-up ankle brace which was given today in the office. An order for physical therapy has been placed to work on range of motion gentle strengthening proprioceptive training. He can continue with working however he should avoid ladders and no pushing pulling or carrying greater than 15 lb. I stressed the importance of avoiding impact type activities in the setting of continued healing. I would like to see him back in 6 weeks with x-rays and re- evaluation, sooner if needed. Orders: Orders PT Evaluation and Treatment Today S82.832A - Other fracture of upper and lower end of left fibula, initial encounter for closed fracture XR ankle LT min 3V Today M25.572 - Pain in left ankle and joints of left foot Coding Level of Care Code Global (86319) Diagnoses Fracture of distal end of fibula S82.832A Encounter type: initial encounter Fracture morphology: unspecified fracture morphology Fracture type: closed Laterality: left
[2024-10-13 11:07] VITALS: BMI 21.1
== END 2024-10-13 11:39 | disposition home or self-care (01) ==
LOC: HO.HOS 10:59
PROVIDERS: PCP Student in an Organized Health Care Education/Training Program; Visit Provider Physician Assistant
DX: S82.832A Other fracture of upper and lower end of left fibula, initial encounter for closed fracture (principal)
CPT/HCPCS: 99213

== ENCOUNTER 2025-01-10 08:24 | Outpatient (REF) | payer OTHER, MEDICAID, SELFPAY ==
--- NOTE | ~2025-01-10 | XR_ITS ---
EXAMINATION: XR ANKLE, LEFT CLINICAL INFORMATION: M25.572 - Pain in left ankle and joints of left foot COMPARISON: 10/13/2024, 09/06/2024. TECHNIQUE: AP, lateral, and mortise views of the left ankle. FINDINGS: Redemonstration of a distal fibular transverse fracture, with fracture line is indistinct and sclerotic, indicating continued healing. Stable anatomical alignment. No additional fracture. No suspicious bone lesion. Ankle mortise is intact. The talar dome is normal. The subtalar joints and calcaneus appear normal. No ankle joint effusion. The soft tissues appear normal. XR/XR ankle LT min 3V IMPRESSION: Continued healing of distal fibular fracture in anatomic alignment. Electronically signed by: Stone Gannon MD 01/10/2025 08:56 AM EDT
--- OUTSIDE RECORDS SUMMARY | 2025-01-11 09:54 | XMS_ITS | Patient Health Record ---
Author Organization [facility] Address [address] [place] [address] Care Team Providers Care Roofing Machine Operator Name Role Phone Susi MILLER, Leon Primary Care Provider Unava ilable Lupis Gaytan Unavailable [phone] Vidal Syed Unavailable [phone] Mell Hull Unavailable [phone] Allergies No Known Allergies Reason For Referral Diagnosis 1 Ingrowing nail (L60. 0) Diagnosis 2 Cellulitis of left t oe (L03.032) Diagnosis 3 Abscess of toe, left (L02.612) Diagnosis 4 Cellulitis of right toe (L03.031) Referring Provider First Name Leon Referring Provider Last Name Susi [facility] Referred Provider Lupis Gaytan Referred Address [address] [place], [place],[address], Referred Provider Specialty Podiatry Referral Priority Routine [...] Ordered Date Performed Result Body Sit e 60760 I&D ABSCESS- SIMPLE,SINGLE 04/26/2024 N/A 81569-EOY 11/25/2024 N/A Encounters Encounter Location Date Provider Diagnosis [address] [address] 02/11/2024 Lupis Perica Abscess of toe, right L02.611 ; Cellulitis of right toe L03.031 and Ingrown nail L60.[address] [address] 03/09/2024 Lupis Perica Cellulitis of toe of right foot L03.031 and Granuloma of great toe L92.9 [facility] [address] [address] 04/26/2024 Vidal Kunal Abscess of toe, right L02.[address] [address] 11/25/2024 Mell Hull Ingrown nail L60.[address] [address] 12/22/2024 Mell Hull Pain in right toe(s) M79.674 ; Ingrown nail L60.0 and Cellulitis of right toe L03.031 [facility] [place] [address] [place] [address] 01/27/2024 Lupis Perica [facility] [address] [address] 02/10/2024 Lupis Perica [facility] [place] [address] [place] [address] 04/26/2024 [facility] [place] [address] [place] [address] 12/22/2024 Lupis Gaytan Assessments Encounter Date Diagnosis [...] Treatment Pending Test Test Name Order Date [id number] 11/25/2024 72690 I&D ABSCESS- SIMPLE,SINGLE 018 87675 I&D ABSCESS- SIMPLE,SINGLE 024 Next Appt Details Provider Name:Mell najera, 01/20/2025 10:00:00 AM, [address] [place], [address], Insurance Providers Payer Name Payer Address Payer Phone Subscriber Number Group Number Insured Name Patient Relationship to Insured Coverage Start Date Coverage End Date [facility] [address] [facility] [place] [id number] Margot Valencia Child - Insured has Financial Responsibility 4 Medical (General) History Medical History History ICD Code Anxiety asthma Autism Surgical History Surgery Date(Month/Year) Eye surgery 12/12 Eye surgery 07/15/17
== END 2025-01-10 08:25 | disposition home or self-care (01) ==
LOC: HO.HOSX 08:24
PROVIDERS: Visit Provider Physician Assistant
DX: S82.832D Other fracture of upper and lower end of left fibula, subsequent encounter for closed fracture with routine healing (principal); Y99.0 Civilian activity done for income or pay
CPT/HCPCS: 73610; 99212

== ENCOUNTER 2025-01-10 08:43 | Outpatient (AMB) | payer OTHER, SELFPAY ==
--- NOTE | 2025-01-10 08:45 | MHC.OFFVIS ---
Vital Signs 01/10/25 08:59 Height 5 ft 7 in Weight 135 lb BMI 21.1 Intake Visit Reasons: OV-LT ankle fracture, WC injury, DOI 09/06/24 Intake Note: Earl is a 19 year old male who presents today for a follow up of left ankle fracture status post worker injury, DOI 09/06/24. At his last visit patient was transitioned into an ankle brace. An order for physical therapy was placed. Instructed to avoid ladders and high impact type activities, no pushing, pulling, or carrying greater than 15 lbs. Follow up in 6 weeks with x-rays. Today patient reports that he continues to have a sharp pain located in his achilles area with flexing his foot down despite attending physical therapy. He has completed physical therapy and was told to discontinue use of ankle brace. Allergies No Known Allergies Allergy (Verified 01/10/25 08:58) Medication List - Last Reconciled 01/10/25 by Manju House PA-C albuterol sulfate 90 mcg/actuation 2 puffs inhalation Q4H PRN cetirizine 10 mg PO ibuprofen 800 mg PO Q8H PRN 30 days HPI HPI OV-LT ankle fracture, WC injury, DOI 09/06/24: Details: 19 yo male returns to the office today s/p left ankle fracture doi 09/06/24. He has completed PT and states there is an occasional pain in the posterior aspect of the ankle with certain motions but it is not constant. It does not impact his ability to perform daily activities and it does not cause weakness. Overall he is doing significantly well. 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 There is no tenderness over the distal fibula. No tenderness along the Achilles tendon. He has full range of motion without laxity. Good strength with plantar flexion and dorsiflexion. Good strength with inversion eversion. Neurovascularly intact. Results Reviewed Results Reviewed: Xrays were obtained in the office today and personally reviewed by me of the left ankle show well healed distal fibular fracture. Assessment & Plan Assessment & Plan (1) Fracture of distal end of fibula: Code(s): S82.839A - Other fracture of upper and lower end of unspecified fibula, initial encounter for closed fracture Category: Medical Qualifiers: Encounter type: initial encounter Fracture morphology: unspecified fracture morphology Fracture type: closed Laterality: left Qualified Code(s): S82.832A - Other fracture of upper and lower end of left fibula, initial encounter for closed fracture Plan: In the absence of pain on exam especially with plantar flexion I feel as though this could be some residual discomfort along the peroneal tendon. I encouraged him to work on his home exercise program. Increase activities as tolerated including returning to work without restrictions and he should use anti-inflammatories for occasional flare-ups. There is any questions or concerns going forward he can contact our office otherwise follow up as needed. Orders: Orders XR ankle LT min 3V Today M25.572 - Pain in left ankle and joints of left foot Coding Level of Care Code Est Pt Level 3 (32298) Complex EM visit Add On G2211 Diagnoses Fracture of distal end of fibula S82.832A Encounter type: initial encounter Fracture morphology: unspecified fracture morphology Fracture type: closed Laterality: left
[2025-01-10 08:59] VITALS: BMI 21.1
--- OUTSIDE RECORDS SUMMARY | 2025-01-10 09:58 | XMS_ITS | Patient Health Record ---
Author Organization [facility] Address [address] [place] [address] Care Team Providers Care Pediatric Clinical Nurse Specialist Name Role Phone Susi MILLER, Leon Primary Care Provider Unava ilable Lupis Gaytan Unavailable [phone] Vidal Syed Unavailable [phone] Mell Hull Unavailable [phone] Allergies No Known Allergies Reason For Referral Diagnosis 1 Ingrowing nail (L60. 0) Diagnosis 2 Cellulitis of left t oe (L03.032) Diagnosis 3 Abscess of toe, left (L02.612) Diagnosis 4 Cellulitis of right toe (L03.031) Referring Provider First Name Leon Referring Provider Last Name Susi [facility] Referred Provider Lupis Gaytan Referred Address [address] [place], [place],[address], Referred Provider Specialty Podiatry Referral Priority Routine Medications Medication SIG (Take, Route, Frequency, Duration) Notes Start Date End Date Status Keflex 500 MG 1 capsule Orally carolyn ry 12 hrs; Duration: 7 days 02/10/2024 Active Cephalexin 500 MG 1 capsule Orally Carolyn ry 12 hrs; Duration: 5 days Active Pulmicort PRN Not-Taking Sulfamethoxazole-Trimetho prim Not-Taking albuterol PRN Active Gym Note . . . Medical from gym for 2 weeks 06/15/2019 Active Bactrim DS 800-160 MG 1 tablet Orally ev roseann 12 hrs; Duration: 7 days 03/09/2018 Not-Taking Doxycycline Hyclate 100 MG 1 tablet Orally Once a day; Duration: 10 day(s) 12/22/2024 Active Immunizations Vaccine Route Administration Date Status Comme nts Influenza Unknown 11/25/2024 Refused Social History Tobacco Use: Social History Observation Description Date Details (start date - stop date) Never Smoker NA - NA Tobacco use other than smoking: Question Answer Notes Are you an other tobacco user? No Tobacco Control (Standard) Question Answer Notes Tobacco use: Nonsmoker Additional Findings: Tobacco non-user Current no nsmoker AUDIT-C (Standard) Question Answer Notes Did you have a drink containing alcohol in the p ast year? No Points 0 Interpretation Negative Vital Signs Blood pressure diastolic 85 mm Hg 12/22/2024 Height 5ft6in in 12/22/2024 Blood pressure systolic 120 mm Hg 12/22/2024 Weight 136 lbs 12/22/2024 BMI 21.95 kg/m2 12/22/2024 Procedures Procedure Date Ordered Date Performed Result Body Sit e 75781 I&D ABSCESS- SIMPLE,SINGLE 04/26/2024 N/A 05045-HFC 11/25/2024 N/A Encounters Encounter Location Date Provider Diagnosis [address] [address] 02/11/2024 Lupis Perica Abscess of toe, right L02.611 ; Cellulitis of right toe L03.031 and Ingrown nail L60.[address] [address] 03/09/2024 Lupis Perica Cellulitis of toe of right foot L03.031 and Granuloma of great toe L92.9 [facility] [address] [address] 04/26/2024 Vidal Kunal Abscess of toe, right L02.[address] [address] 11/25/2024 Mell Hull Ingrown nail L60.[address] [address] 12/22/2024 Mell Hull Pain in right toe(s) M79.674 ; Ingrown nail L60.0 and Cellulitis of right toe L03.031 [facility] [place] [address] [place] [address] 01/27/2024 Lupis Perica [facility] [address] [address] 02/10/2024 Lupis Perica [facility] [place] [address] [place] [address] 04/26/2024 [facility] [place] [address] [place] [address] 12/22/2024 Lupis Gaytan Assessments Encounter Date Diagnosis (ICD Code) Assessment [...] CARE INSTRUCTIONS.p df (WOUND CARE INSTRUCTIONS.p df) 11/25/2024 Ingrown nail (ICD-10 - L60.0) 12/22/2024 Pain in right toe(s) (ICD-10 - M79.674) 12/22/2024 Ingrown nail (ICD-10 - L60.0) Patient Educated with: WOUND CARE INSTRUCTIONS.p df (WOUND CARE INSTRUCTIONS.p df) 02/11/2024 Ingrown nail (ICD-10 - L60.0) 12/22/2024 Cellulitis of right toe (ICD-10 - L03.031) Plan Of Treatment Pending Test Test Name Order Date [id number] 11/25/2024 18800 I&D ABSCESS- SIMPLE,SINGLE 024 51051 I&D ABSCESS- SIMPLE,SINGLE 018 Next Appt Details Provider Name:Mell najera, 01/20/2025 10:00:00 AM, [address] [place], [address], Insurance Providers Payer Name Payer Address Payer Phone Subscriber Number Group Number Insured Name Patient Relationship to Insured Coverage Start Date Coverage End Date [facility] [address] [facility] [place] [id number] Margot Valencia Child - Insured has Financial Responsibility 4 Medical (General) History Medical History History ICD Code Anxiety asthma Autism Surgical History Surgery Date(Month/Year) Eye surgery 12/12 Eye surgery 07/15/17
== END 2025-01-10 09:14 | disposition home or self-care (01) ==
LOC: HO.HOS 08:43
PROVIDERS: PCP Student in an Organized Health Care Education/Training Program; Visit Provider Physician Assistant
DX: S82.832A Other fracture of upper and lower end of left fibula, initial encounter for closed fracture (principal)
CPT/HCPCS: 99213; G2211

== ENCOUNTER → 2025-01-10 08:45 | Outpatient (BNV) | payer OTHER, SELFPAY | PROVIDERS: Visit Provider Radiology Diagnostic Radiology | DX: M25.572 Pain in left ankle and joints of left foot (principal) | CPT/HCPCS: 73610 ==